=== PATIENT | female | born 1940 | race Caucasian/White ===

== ENCOUNTER → 2018-01-13 | Outpatient (CLI) | payer MEDICARE | LOC: GMAL 11:23 | PROVIDERS: ATTEND Family Medicine | DX: D51.3 Other dietary vitamin B12 deficiency anemia (principal); R53.83 Other fatigue; E55.9 Vitamin D deficiency, unspecified ==

== ENCOUNTER → 2018-03-16 | Outpatient (CLI) | payer MEDICARE, OTHER ==
--- NOTE | 2018-03-16 11:41 | RAD ---
EXAM DESCRIPTION: Wrist,Left 3 Views CLINICAL HISTORY: 77 years, Female, PAIN IN LEFT WRIST COMPARISON: None FINDINGS: Left wrist 3 x-ray views is negative for fracture or dislocation. Bones appear somewhat osteopenic with prominent trabecular pattern. Carpal relationships are well-maintained. Distal radius and ulna appear intact. Normal metacarpals. Mild spurring at the radial carpal joint. Slight widening of the scapholunate distance. IMPRESSION: Negative for fracture or dislocation. Electronically signed by: Denzel Arenas MD 03/16/2018 11:40 AM CDT
--- NOTE | 2018-03-16 11:44 | RAD ---
EXAM DESCRIPTION: Ankle,Left 3 Views CLINICAL HISTORY: 77 years, Female, PAIN IN LEFT ANKLE AND JOINTS OF LEFT FOOT COMPARISON: Previous left foot lateral view May 08, 2015 TECHNIQUE: AP/lateral/oblique of the left ankle FINDINGS: Irregularities at the tips of the malleoli appear old. No definite acute fracture. There is mild soft tissue swelling medially. Intact proximal metatarsals. Intact dome of the talus. Lateral view shows no evidence of fracture of the body of the talus or calcaneus. Prominent plantar and mild dorsal calcaneal spurring is seen. Mild spurring of the posterior more than anterior aspects of the ankle joint. IMPRESSION: Negative for fracture or dislocation. Electronically signed by: Denzel Arenas MD 03/16/2018 11:43 AM CDT
== END ==
LOC: RAD 08:56
PROVIDERS: ATTEND Orthopaedic Surgery
DX: M25.532 Pain in left wrist (principal); M25.572 Pain in left ankle and joints of left foot

== ENCOUNTER 2018-10-28 20:23 | Emergency (ER) | payer MEDICARE, OTHER ==
--- NOTE | 2018-10-28 21:06 | ED.PDOC ---
History of Present Illness - General Chief Complaint: Back Pain or Injury Stated Complaint: back pain, nausea Time Seen by Provider: 10/28/18 21:05 Source: patient Exam Limitations: no limitations - History of Present Illness Initial Comments: Mayra Barney 78 y/o female stated that she was carrying microwave oven 26 Oct 2018 then as she turned she tripped on her other leg fell on her back with the microwave oven and she was able to get up w/o assistance but since the incident had dull ache on her lower back non radiating,no bowel or bladder dysfunction,no weakness no numbness. Timing/Duration: other - 2 1/2 days Quality/Severity: dullness Back Pain Location: lumbar spine Back Pain Radiation: other - NONE Method of Injury/Prior Injury: fell Improving Factors: rest Worsening Factors: movement Associated Symptoms: lower back pain Allergies/Adverse Reactions: Allergies Codeine Allergy (Verified 10/28/18 20:41) Home Medications: Ambulatory Orders Methocarbamol [Robaxin] 750 mg PO BID PRN #14 tab 10/28/18 Tramadol HCl 50 mg PO TID PRN #20 tab 10/28/18 Review of Systems - Review of Systems Constitutional: States: no symptoms reported EENTM: States: no symptoms reported Respiratory: States: no symptoms reported Cardiology: States: no symptoms reported Genitourinary: States: no symptoms reported Musculoskeletal: States: see HPI, back pain All other Systems: Reviewed and Negative, No Change from Baseline Past Medical History (General) - Patient Medical History Hx Seizures: No Hx Stroke: No Hx Dementia: No Hx Asthma: No Hx of COPD: No Hx Cardiac Disorders: Yes - heart murmur Hx Congestive Heart Failure: Yes - mild Hx Pacemaker: No Hx Hypertension: No Hx Thyroid Disease: No Hx Diabetes: Yes Hx Gastroesophageal Reflux: No Hx Renal Disease: No Hx Cancer: Yes - breast Hx of HIV: No Hx MRSA: No Surgical History: cholecystectomy, Hysterectomy, other - lumpectomy,hysterectomy - Vaccination History Hx Tetanus, Diphtheria Vaccination: No Hx Influenza Vaccination: No Hx Pneumococcal Vaccination: No Immunizations Up to Date: No - Social History Hx Tobacco Use: No Hx Alcohol Use: No Hx Substance Use: No Hx Substance Use Treatment: No Hx Depression: No - Female History Patient is a Female of Child Bearing Age (10 -59 yrs old): No - Triage Comment ED Triage Comment: Pt reports that she fell on Friday at home. Hit her back and has few bruises to left arm. Pt stated she has been hurting in her lower back since and unable to get comfortable unless she does not move. Pt family member also concerned about pt abd being distended and having constipation issues. Pt stated feeling nauseated due to pain Family Medical History - Family History Mother Family History: Unknown Hx Family Asthma: Yes - COPD-parents Hx Family Diabetes: Yes - brother Hx Family Cancer: Yes - siblings-stomach and esophagus Physical Exam - Physical Exam General Appearance: Alert, Anxious, Comfortable, No apparent distress Eyes, Ears, Nose, Throat Exam: normal ENT inspection Neck Exam: non-tender, full range of motion, normal alignment, normal inspection Cardiovascular/Respiratory: regular rate, rhythm, no M/R/G, normal peripheral pulses, normal breath sounds Peripheral Pulses: radial,right: 2+, radial,left: 2+ Gastrointestinal/Abdominal: non tender, soft, no organomegaly Back Exam: decreased range of motion, muscle spasm, vertebral tenderness Extremity Exam: no evidence of injury, non-tender, no pedal edema Neurologic: no motor/sensory deficits, alert, oriented x 3, other - negative straight leg raising test Skin Exam: normal color, warm/dry Progress - Progress Progress: 10/28/18 21:30 Vital Signs - 8 hr 10/28/18 20:42 Temperature 98.7 F Pulse Rate [ 107 H left] Respiratory 18 Rate Blood Pressure 165/90 [left] O2 Sat by Pulse 94 L Oximetry - Results/Orders Results/Orders: Laboratory Tests 10/28/18 20:42 Urine Color Yellow Urine Appearance Clear Urine pH 5.0 Ur Specific [place] >= 1.030 Urine Protein 30 Urine Glucose (UA) Negative Urine Ketones Trace Urine Blood Moderate H Urine Nitrite Negative Urine Bilirubin Negative Urine Urobilinogen 0.2 Ur Leukocyte Esterase Negative Urine RBC 5-10 H Urine WBC 1-3 Ur Epithelial Cells 5-10 Urine Bacteria 0 Discuss test results with patient - EKG/XRAY/CT CT Ordered: Yes - abd/p-no acute abnormalities Departure - Departure Clinical Impression: Constipation by delayed colonic transit Fall in home Qualifiers: Encounter type: initial encounter Qualified Code(s): W19.XXXA - Unspecified fall, initial encounter; Y92.009 - Unspecified place in unspecified non- institutional (private) residence as the place of occurrence of the external cause Contusion of lower back Qualifiers: Encounter type: initial encounter Qualified Code(s): S30.0XXA - Contusion of lower back and pelvis, initial encounter Time of Disposition: 22:10 Disposition: Discharge to Home or Self Care Condition: Fair Departure Forms: ED Discharge - Pt. Copy, Patient Portal Self Enrollment Instructions: DI for Low Back Pain, DI for Back Spasm, Contusion (DC), Constipation in Adults, Constipation, Adult (DC) Referrals: Hao Banda III, MD [Primary Care Provider] - 1-2 Weeks Prescriptions: Methocarbamol [Robaxin] 750 mg PO BID PRN #14 tab PRN Reason: Muscle Spasms Tramadol HCl 50 mg PO TID PRN #20 tab PRN Reason: Pain Home Medications: Ambulatory Orders Methocarbamol [Robaxin] 750 mg PO BID PRN #14 tab 10/28/18 Tramadol HCl 50 mg PO TID PRN #20 tab 10/28/18 Additional Instructions: Alternate Ice pack and heating pad 15 minutes each 3 x a day until better;Follow up with primary Md 05 Nov 2018 for recheck as needed
[2018-10-28 21:32] VITALS: O2SAT 95
--- NOTE | 2018-10-28 21:56 | CT ---
EXAM DESCRIPTION: Abdoment/Pelvis w/o Contrast CLINICAL HISTORY: 78 years Female pain/fall COMPARISON: 12/11/2015. TECHNIQUE: Contiguous axial images obtained through the abdomen and pelvis without IV contrast. Reformatted images obtained. This exam was performed according to our department optimization program which includes automated exposure control, adjustment of the mA and/or kv according to patient size and/or use of iterative reconstruction technique. FINDINGS: Atelectasis in the left base with elevation the left hemidiaphragm. Small hiatal hernia. The liver appears unremarkable. The spleen and pancreas appear unremarkable. No adrenal masses. The kidneys appear unremarkable. No hydronephrosis or definite ureteral calculi. The gallbladder is absent. No aneurysmal dilatation of the aorta. There is a large volume of fecal material in the cecum and the ascending colon which may reflect constipation. No focal mechanical obstruction is evident. 2.2 cm low-attenuation focus in the right ovary. This is smaller than on the previous examination. No free fluid. IMPRESSION: Moderate fecal material in the colon particularly in the cecum and ascending colon which may reflect constipation Simple appearing right ovarian cyst which is smaller than size and on the previous examination. No follow-up is recommended Basilar atelectasis No evidence of acute process Electronically signed by: Jyoti Mensah MD 10/28/2018 9:54 PM [employer]
[2018-10-28] MEDS: CYCLOBENZAPRINE HCL 5 MG TAB PO ONE (22:18)
[2018-10-28] MEDS: HYDROcodone 5MG/APAP 325MG 1 EA TAB PO ONE (22:19)
[2018-10-28] MEDS: HYDROCOD/APAP 10/325 (ER DISP) # 3 tablets PO ONE (22:19)
[2018-10-28] MEDS: CYCLOBENZAPRINE TAB (ER DISP) 10 MG TAB PO ONE (22:20)
[2018-10-28 22:28] VITALS: BP 141/98; TEMP 97.8
== END 2018-10-28 22:27 | disposition home or self-care (01) ==
LOC: ER 20:23
DX: S30.0XXA Contusion of lower back and pelvis, initial encounter (principal); K59.01 Slow transit constipation; R11.0 Nausea; E11.9 Type 2 diabetes mellitus without complications; I50.9 Heart failure, unspecified; W18.39XA Other fall on same level, initial encounter; Y93.89 Activity, other specified; Y92.009 Unspecified place in unspecified non-institutional (private) residence as the place of occurrence of the external cause; Z85.3 Personal history of malignant neoplasm of breast; Z79.899 Other long term (current) drug therapy; Z88.5 Allergy status to narcotic agent

== ENCOUNTER → 2019-02-22 | Outpatient (CLI) | payer MEDICARE, OTHER | LOC: GMAL 11:38 | PROVIDERS: ATTEND Family Medicine | DX: D51.3 Other dietary vitamin B12 deficiency anemia (principal); E11.9 Type 2 diabetes mellitus without complications; E78.2 Mixed hyperlipidemia; R53.83 Other fatigue; E55.9 Vitamin D deficiency, unspecified; Z79.899 Other long term (current) drug therapy ==

== ENCOUNTER → 2019-03-04 | Outpatient (CLI) | payer MEDICARE, OTHER ==
--- NOTE | 2019-03-05 17:05 | MRI ---
MR LUMBAR SPINE WITHOUT IV CONTRAST HISTORY: 78 years Female Back Pain COMPARISON: CT abdomen and pelvis dated December 11, 2015, and October 28, 2018. TECHNIQUE: Multiplanar multisequence MR imaging of the lumbar spine was performed without the use of intravenous contrast. FINDINGS: There 5 lumbar-type vertebral bodies. The most inferior disc space is designated as L5-S1. Severe compression deformity and focal kyphosis demonstrated at T12, slightly worsened compared to the CT performed October 28, 2018. T2/STIR hyperintense signal is present throughout the vertebral body suggestive of acute to subacute fracture. Mild retropulsion of fracture fragments at the superior aspect of the vertebral body results in moderate central canal narrowing at this level. Vertebrae the lumbar spine otherwise demonstrate normal height and alignment. No evidence of pathologic marrow infiltrate of process. Included cord and caudal roots demonstrate normal morphology and MR signal. Conus terminates at L1. Limited evaluation of the included regional soft tissues and viscera demonstrates no acute abnormalities. Intervertebral levels: L1-L2: Moderate disc desiccation. Mild disc height loss. 2 mm annular disc bulge. No central canal stenosis. Mild bilateral facet arthrosis. No neuroforaminal stenosis. L2-L3: Moderate bilateral facet arthrosis. Otherwise unremarkable. L3-L4: Moderate bilateral facet arthrosis. Mild bilateral neuroforaminal narrowing. L4-L5: Moderate disc desiccation. 2 mm annular disc bulge with superimposed 3 mm left foraminal disc protrusion. In conjunction with ligamentum flavum hypertrophy, there is mild central canal stenosis with AP diameter measuring 9 mm. Severe bilateral facet arthrosis and ligamentum flavum hypertrophy. Mild bilateral lateral recess stenosis. Mild bilateral neuroforaminal stenosis. L5-S1: Moderate disc desiccation. No central canal stenosis. Severe bilateral facet arthrosis. No significant neuroforaminal narrowing. IMPRESSION: Slight interval worsening of a severe T12 anterior wedge compression fracture. There is diffuse edema throughout the T12 vertebral body, suggesting probable acute on chronic fracturing. Mild retropulsion of the superior fracture fragments results in moderate central canal narrowing at that level. Multilevel degenerative disc disease and facet arthrosis as discussed. There is mild central canal stenosis at L4-L5 primarily due to ligamentum flavum hypertrophy. Mild neuroforaminal narrowing bilaterally at L3-L4 and L4-L5. Findings discussed with the referring provider, Dr. Banda, at approximately 4:30 PM on 03/05/2019. Electronically signed by: Kristopher Thomas MD 03/05/2019 5:03 PM CDT
== END ==
LOC: MRI 12:56
PROVIDERS: ATTEND Family Medicine
DX: M48.54XA Collapsed vertebra, not elsewhere classified, thoracic region, initial encounter for fracture (principal); M51.36 Other intervertebral disc degeneration, lumbar region; M48.061 Spinal stenosis, lumbar region without neurogenic claudication

== ENCOUNTER → 2019-07-05 | Outpatient (CLI) | payer MEDICARE, OTHER | LOC: GMAL 18:12 | PROVIDERS: ATTEND Family Medicine | DX: D51.3 Other dietary vitamin B12 deficiency anemia (principal) ==

== ENCOUNTER → 2020-08-04 | Outpatient (CLI) | payer MEDICARE | LOC: GMAL 10:43 | PROVIDERS: ATTEND Family Medicine | DX: D51.3 Other dietary vitamin B12 deficiency anemia (principal); E55.9 Vitamin D deficiency, unspecified; R53.83 Other fatigue; E11.9 Type 2 diabetes mellitus without complications; Z79.899 Other long term (current) drug therapy ==